=== PATIENT | female | born 1990 | race Caucasian/White ===

== ENCOUNTER 2023-08-30 15:31 | Emergency (ER) | payer BC ==
[~2023-08-30] VITALS: Ht 154.9 cm; Wt 56.8 kg
[~2023-08-30 15:31] MED LIST: BACTRIM 400 MG-1 TAB PO; MOTRIN 800800 MG/TAB PO; NO HOME MEDICATIONS; ORTHO TRI-CYCLE1 TAB PO; ROXICODONE 55 MG/TAB PO
[2023-08-30 15:38] VITALS: TEMP 97.5
[2023-08-30 16:48] LABS: BASO # 0.1 K/mm3 (0.0-0.2); BASO % 0.8 % (0.0-2.0); EOS % 13.3 % (0.0-4.0); GRAN # 9.3 K/mm3 (1.4-6.5); GRAN % 63.9 % (42.2-75.2); HEMATOCRIT 39.7 % (37.0-47.0); LYMPH # 2.3 K/mm3 (1.2-3.4); LYMPH % 15.9 % (20.0-51.0); MEAN CELL VOLUME 92 fl (80.0-100.0); MEAN CORPUSCULAR HEMOGLOBIN 30 pg (27-31); MEAN CORPUSCULAR HGB CONC 33 g/dl (33.0-37.0); MEAN PLATELET VOLUME 9.6 fl (7.4-10.4); MONO # 0.8 K/mm3 (0.1-0.6); MONO % 5.7 % (1.7-9.3); PLATELET COUNT 336 K/mm3 (130-400); RED BLOOD COUNT 4.34 M/mm3 (4.10-5.30); REDCELL DISTRIBUTION WIDTH-CV 12.9 % (11.5-14.5)
[2023-08-30 17:08] LABS: ALBUMIN 3.8 gm/dL (3.5-5.0); BILIRUBIN,TOTAL 0.2 mg/dL (0.2-1.2); C-REACTIVE PROTEIN 0.32 mg/dL (0.00-0.50); CALCIUM 9.7 mg/dL (8.4-10.2); CREATININE, serum 0.85 mg/dL (0.57-1.11); POTASSIUM 4.2 mmol/L (3.5-4.5); TOTAL PROTEIN 6.9 gm/dL (6.2-8.1)
[2023-08-30 17:25] LABS: COLLECTION METHOD CLEAN CATCH
[2023-08-30 17:46] LABS: URINE APPEARANCE Hazy (CLEAR/HAZY); URINE COLOR Yellow (YELLOW)
[2023-08-30 17:47] LABS: URINE BLOOD Negative (NEGATIVE); URINE GLUCOSE Negative (NEGATIVE); URINE KETONE Negative (NEGATIVE); URINE NITRATE Negative (NEGATIVE); URINE PROTEIN(semi-quant) Negative (NEGATIVE); URINE UROBILINOGEN 0.2 E.U/dL (0.2-1.0)
[2023-08-30 18:05] LABS: AMORPHOUS CRYSTAL Present (NOT PRESENT); SQUAMOUS EPITHELIAL 0-2 /hpf (0-10); URINE BACTERIA Occasional /hpf (NONE SEEN); URINE RBC 0-2 /hpf (0-2)
[2023-08-30] MEDS ORDERED: PERCOCET 325 MG1 TA2 PO (19:12)
[2023-08-30] MEDS ORDERED: ZOFRAN ODT4 MG PO (19:18)
[2023-08-30 19:37] VITALS: BP 97/66; PULSE 70
== END 2023-08-30 19:39 | disposition home or self-care (01) ==
LOC: COL.ER 15:31
PROVIDERS: Nurse Practitioner
DX: R10.11 Right upper quadrant pain (principal); R10.13 Epigastric pain; R11.0 Nausea
CPT/HCPCS: J1170; J2405; J7030; Q9967

== ENCOUNTER → 2023-09-13 | Outpatient (CLI) | payer BC ==
[~2023-09-13] MED LIST changes: +PERCOCET 325 MG1 TA2 PO; +ZOFRAN ODT4 MG PO
--- NOTE | 2023-09-13 12:58 | NUR ---
Pt, Maryse Galindo, presents for outpatient consult with 2 month old baby girl, Eloisa Galindo. Pt contacted this LC with concerns that she is not getting completely empty with her breastpump. She is exclusively pumping due to Eloisa never latching properly. Eloisa was born on [birth year] and weighed 5# 13.1oz (2640 gms). She was a vacuum assisted delivery. Today Eloisa weighs 8# 15.8oz (4078 gms). Pt states this is less than at the doctor's office last week. LC calibrates scales and comes up with same numbers. We offer Eloisa the breast just to see what she will do. She becomes very fussy, fidgety and impatient. If LC dribbles EBM over the nipple she will latch and nurse for a bit, but then needs the gtts again. Post feed weigh gain was 7 gms. At this point we turn to pumping evaluation. Pt has had several sizes of newman for her breastpump and does not think one is particulary better than the others at getting milk out. She is generally using the 24mm shield. LC feeds Eloisa 4oz EBM while pt pumps. Pt generally pumps 2-3oz ~8 times daily. She does not indicate a drop in milk production with the sensation of not getting emptied with the pump. observes prior to pt pumping that she has very reddened nipples with a line consistent with where the breastsheild fits her. Also she has a white growth in the grooves of the nipple that she states do not go away with washing. observes pt pumping tries both the 24mm and 21mm shield but does not note a significant differance in appearance. Information RE: breast candidia reviewed and handouts provided. Pt is already using Akbar's Nipple Cream (x2 weeks). provides a list of different antifungals and home reamidies she can try, while weaning from the Akbar's. Handouts provided re: treatment of thrush at home. Impression: Possible nipple and ductal Candidia causing inflamation that makes pt feel she is not emptying the breast well. POC: Continue pumping with shield that seems to be most comfortable. Change nipple antifungal to a different version, weaning from NNC by using it only q other feeding. At the alternate feedings use the new antifungal cream, can also add home remedies such as dilute vinegar rinses of the nipple p pumping. Pt states she is consistent with sterilization of pump parts. Consider regular use of an anti-inflamatory such as ibuprofen. F/U: Pt to report to this LC in two days. May consider talking to OB provider re: oral Difulcan two week therapy for ductal yeast if the topical helps the nipple. Questions invited and answered.
== END ==
LOC: LAC 05:51
DX: Z39.1 Encounter for care and examination of lactating mother (principal); Z71.89 Other specified counseling